=== PATIENT | female | born 1970 | race African-American/Black ===

== ENCOUNTER → 2016-07-22 | Outpatient (CLI) | payer OTHER ==
[~2016-07-22] MED LIST: BACTRIM DS TABL1 TA1 PO; FLEXERIL10 MG PO; NAPROSYN500 MG PO; ZITHROMAX1 G/PKT PO
== END | disposition home or self-care (01) ==
LOC: CLAB 16:28
DX: R06.02 Shortness of breath (principal)
CPT/HCPCS: 36415; 84443